=== PATIENT | male | born 1960 | race Caucasian/White ===

== ENCOUNTER 2024-05-09 10:03 | Outpatient (CLI) | payer OTHER | END 2024-05-09 10:04 | disposition home or self-care (01) | LOC: CSHCT 10:03 | PROVIDERS: ATTEND Internal Medicine | DX: R06.09 Other forms of dyspnea (principal); F17.200 Nicotine dependence, unspecified, uncomplicated; J98.4 Other disorders of lung; I25.10 Atherosclerotic heart disease of native coronary artery without angina pectoris; I25.84 Coronary atherosclerosis due to calcified coronary lesion | CPT/HCPCS: 71250; 94060; 94664; 94726; 94729; 94760 ==